=== PATIENT | male | born 1980 ===

== ENCOUNTER 2024-05-04 19:54 | Emergency (ER) | payer OTHER ==
[~2024-05-04] VITALS: Ht 167.6 cm; Wt 68.1 kg
[2024-05-04 20:30] VITALS: TEMP 98
[2024-05-04 22:30] VITALS: BP 136/75; PULSE 101; RESP 17; O2SAT 99
[2024-05-04] MEDS ORDERED: CLOT15CR29 TP (22:40)
== END 2024-05-04 23:01 | disposition home or self-care (01) ==
LOC: EMS 19:54
DX: B35.6 Tinea cruris (principal); F17.210 Nicotine dependence, cigarettes, uncomplicated; F15.90 Other stimulant use, unspecified, uncomplicated
CPT/HCPCS: 99281; Z7502